=== PATIENT | female | born 1990 | race American Indian/Alaskan Native ===

== ENCOUNTER 2016-12-15 19:47 | Inpatient (IN) | payer OTHER ==
[2016-12-15] MEDS ORDERED: NACL 0.9% 1000 ML 1,000 ML IV ONE ×2 (20:13→22:31)
--- NOTE | 2016-12-15 20:16 | Emergency Department Report ---
HPI - General Chief Complaint: Altered Mental Status Time Seen by Provider: 12/15/16 20:07 - HPI HPI: Room 2 The patient is a 26-year-old female presenting with a chief complaint of altered mental status. Family states the patient's last known well time was at approximately 14:00. The patient went to the park with some friends admits to consuming alcohol. The friends brought the patient back home at approximately 17:00 the patient apparently altered. The patient does speak but moans occasionally and has nonpurposeful movements. There were no complaints earlier as the patient went to synagogue and took her normal medication. Patient does not respond verbally to questions Location: Mental State Duration: Constant since at least 17:00 Quality: Altered Severity: Moderate Modifying factors: [see above] Context: [see above] Mode of transportation: [not driving] ED Past Medical Hx - Past Medical History Previous Medical History?: Yes Hx Psychiatric Treatment: Yes (PTSD, anxiety) - Surgical History Past Surgical History?: No - Family History Family history: no significant - Social History Smoking Status: Unknown if ever smoked Substance Use Type: Alcohol - Medications Home Medications: Home Medications Medication Instructions Recorded Confirmed Last Taken Type Sertraline [Zoloft] 50 mg PO QDAY 12/15/16 12/15/16 Unknown History lamoTRIgine [LaMICtal] 25 mg PO DAILY 12/15/16 12/15/16 Unknown History ED Review of Systems ROS: Stated complaint: ANXIETY W/DAVID Other details as noted in HPI Comment: Unobtainable due to pts medical conditions Physical Exam - Physical Exam Vital Signs: Vital Signs 12/15/16 20:04 Temperature 97.8 F Pulse Rate 132 H Respiratory 18 Rate Blood Pressure 128/110 O2 Sat by Pulse 95 Oximetry Physical Exam: GENERAL: The patient is well-developed well-nourished female appearing disheveled on stretcher requiring multiple staff members to hold her in place in order to establish an IV. [] HEENT: Normocephalic. Atraumatic. Extraocular motions are intact. NECK: Supple. Trachea midline CHEST/LUNGS: There is no respiratory distress noted. HEART/CARDIOVASCULAR: Regular. There is tachycardia. ABDOMEN: There is no abdominal distention. SKIN: There is no rash. There is no edema. There is no diaphoresis. NEURO: The patient is awake and does not respond verbally to questions. The patient is not cooperative and appears slightly agitated. Moves all extremities well MUSCULOSKELETAL: There is no evidence of acute injury. ED Course Vital Signs 12/15/16 20:04 Temperature 97.8 F Pulse Rate 132 H Respiratory 18 Rate Blood Pressure 128/110 O2 Sat by Pulse 95 Oximetry - Reevaluation(s) Reevaluation #1: 12/15/16 21:55 Patient resting comfortably. Discussed with mother studies that have resulted at this time. I explained that even though the patient's alcohol level was extremely high does not exclude potential [employer] insult or other etiologies of altered mental status. I explained my recommendation that the patient receive a CT of the brain. The patient's mother refuses although she verbalized her understanding that an elevated alcohol level does not exclude other tentatively serious causes of patient's presentation ED Medical Decision Making - Lab Data Result diagrams: 12/15/16 20:49 12/15/16 20:49 Laboratory Tests 12/15/16 12/15/16 12/15/16 20:49 20:49 20:49 WBC 7.1 RBC 4.29 Hgb 13.0 Hct 39.4 MCV 92 MCH 30 MCHC 33 RDW 13.7 Plt Count 340 Lymph % (Auto) 45.2 H [place] % (Auto) 6.7 Eos % (Auto) 0.8 Baso % (Auto) 0.2 Lymph # 3.2 [place] # 0.5 Eos # 0.1 Baso # 0.0 Seg Neutrophils % 47.1 Seg Neutrophils # 3.4 PT 13.2 INR 0.95 APTT 31.6 Sodium 150 H Potassium 3.5 L Chloride 109.1 H Carbon Dioxide 26 Anion Gap 18 BUN 7 Creatinine 0.9 Estimated GFR > 60 BUN/Creatinine Ratio 7.77 Glucose 98 Calcium 8.3 L Total Bilirubin < 0.20 AST 18 ALT 19 Alkaline Phosphatase 54 Ammonia Total Creatine Kinase 105 CK-MB (CK-2) 1.3 CK-MB (CK-2) Rel Index 1.2 Troponin T Total Protein 6.8 Albumin 4.1 Albumin/Globulin Ratio 1.5 TSH Free T4 HCG, Qual Plasma/Serum Alcohol 12/15/16 12/15/16 12/15/16 20:49 20:49 20:49 WBC RBC Hgb Hct MCV MCH MCHC RDW Plt Count Lymph % (Auto) [place] % (Auto) Eos % (Auto) Baso % (Auto) Lymph # [place] # Eos # Baso # Seg Neutrophils % Seg Neutrophils # PT INR APTT Sodium Potassium Chloride Carbon Dioxide Anion Gap BUN Creatinine Estimated GFR BUN/Creatinine Ratio Glucose Calcium Total Bilirubin AST ALT Alkaline Phosphatase Ammonia Total Creatine Kinase CK-MB (CK-2) CK-MB (CK-2) Rel Index Troponin T < 0.010 Total Protein Albumin Albumin/Globulin Ratio TSH 0.827 Free T4 1.32 HCG, Qual Negative Plasma/Serum Alcohol 12/15/16 12/15/16 20:49 20:49 WBC RBC Hgb Hct MCV MCH MCHC RDW Plt Count Lymph % (Auto) [place] % (Auto) Eos % (Auto) Baso % (Auto) Lymph # [place] # Eos # Baso # Seg Neutrophils % Seg Neutrophils # PT INR APTT Sodium Potassium Chloride Carbon Dioxide Anion Gap BUN Creatinine Estimated GFR BUN/Creatinine Ratio Glucose Calcium Total Bilirubin AST ALT Alkaline Phosphatase Ammonia 26.0 Total Creatine Kinase CK-MB (CK-2) CK-MB (CK-2) Rel Index Troponin T Total Protein Albumin Albumin/Globulin Ratio TSH Free T4 HCG, Qual Plasma/Serum Alcohol 0.47 H Laboratory Tests 12/15/16 12/15/16 12/15/16 20:49 20:49 20:49 WBC 7.1 RBC 4.29 Hgb 13.0 Hct 39.4 MCV 92 MCH 30 MCHC 33 RDW 13.7 Plt Count 340 Lymph % (Auto) 45.2 H [place] % (Auto) 6.7 Eos % (Auto) 0.8 Baso % (Auto) 0.2 Lymph # 3.2 [place] # 0.5 Eos # 0.1 Baso # 0.0 Seg Neutrophils % 47.1 Seg Neutrophils # 3.4 PT 13.2 INR 0.95 APTT 31.6 Sodium 150 H Potassium 3.5 L Chloride 109.1 H Carbon Dioxide 26 Anion Gap 18 BUN 7 Creatinine 0.9 Estimated GFR > 60 BUN/Creatinine Ratio 7.77 Glucose 98 Calcium 8.3 L Total Bilirubin < 0.20 AST 18 ALT 19 Alkaline Phosphatase 54 Ammonia Total Creatine Kinase 105 CK-MB (CK-2) 1.3 CK-MB (CK-2) Rel Index 1.2 Troponin T Total Protein 6.8 Albumin 4.1 Albumin/Globulin Ratio 1.5 TSH Free T4 HCG, Qual Urine Color Urine Turbidity Urine pH Ur Specific [place] Urine Protein Urine Glucose (UA) Urine Ketones Urine Blood Urine Nitrite Urine Bilirubin Urine Urobilinogen Ur Leukocyte Esterase Urine WBC (Auto) Urine RBC (Auto) U Epithel Cells (Auto) Urine Opiates Screen Urine Methadone Screen Ur Barbiturates Screen Ur Phencyclidine Scrn Ur Amphetamines Screen U Benzodiazepines Scrn Urine Cocaine Screen U Marijuana (THC) Screen Drugs of Abuse Note Plasma/Serum Alcohol 12/15/16 12/15/16 12/15/16 20:49 20:49 20:49 WBC RBC Hgb Hct MCV MCH MCHC RDW Plt Count Lymph % (Auto) [place] % (Auto) Eos % (Auto) Baso % (Auto) Lymph # [place] # Eos # Baso # Seg Neutrophils % Seg Neutrophils # PT INR APTT Sodium Potassium Chloride Carbon Dioxide Anion Gap BUN Creatinine Estimated GFR BUN/Creatinine Ratio Glucose Calcium Total Bilirubin AST ALT Alkaline Phosphatase Ammonia Total Creatine Kinase CK-MB (CK-2) CK-MB (CK-2) Rel Index Troponin T < 0.010 Total Protein Albumin Albumin/Globulin Ratio TSH 0.827 Free T4 1.32 HCG, Qual Negative Urine Color Urine Turbidity Urine pH Ur Specific [place] Urine Protein Urine Glucose (UA) Urine Ketones Urine Blood Urine Nitrite Urine Bilirubin Urine Urobilinogen Ur Leukocyte Esterase Urine WBC (Auto) Urine RBC (Auto) U Epithel Cells (Auto) Urine Opiates Screen Urine Methadone Screen Ur Barbiturates Screen Ur Phencyclidine Scrn Ur Amphetamines Screen U Benzodiazepines Scrn Urine Cocaine Screen U Marijuana (THC) Screen Drugs of Abuse Note Plasma/Serum Alcohol 12/15/16 12/15/16 12/15/16 20:49 20:49 22:40 WBC RBC Hgb Hct MCV MCH MCHC RDW Plt Count Lymph % (Auto) [place] % (Auto) Eos % (Auto) Baso % (Auto) Lymph # [place] # Eos # Baso # Seg Neutrophils % Seg Neutrophils # PT INR APTT Sodium Potassium Chloride Carbon Dioxide Anion Gap BUN Creatinine Estimated GFR BUN/Creatinine Ratio Glucose Calcium Total Bilirubin AST ALT Alkaline Phosphatase Ammonia 26.0 Total Creatine Kinase CK-MB (CK-2) CK-MB (CK-2) Rel Index Troponin T Total Protein Albumin Albumin/Globulin Ratio TSH Free T4 HCG, Qual Urine Color Straw Urine Turbidity Clear Urine pH 6.0 Ur Specific [place] 1.003 Urine Protein 30 mg/dl Urine Glucose (UA) Neg Urine Ketones Neg Urine Blood Sm Urine Nitrite Neg Urine Bilirubin Neg Urine Urobilinogen < 2.0 Ur Leukocyte Esterase Neg Urine WBC (Auto) < 1.0 Urine RBC (Auto) 1.0 U Epithel Cells (Auto) < 1.0 Urine Opiates Screen Urine Methadone Screen Ur Barbiturates Screen Ur Phencyclidine Scrn Ur Amphetamines Screen U Benzodiazepines Scrn Urine Cocaine Screen U Marijuana (THC) Screen Drugs of Abuse Note Plasma/Serum Alcohol 0.47 H 12/15/16 22:40 WBC RBC Hgb Hct MCV MCH MCHC RDW Plt Count Lymph % (Auto) [place] % (Auto) Eos % (Auto) Baso % (Auto) Lymph # [place] # Eos # Baso # Seg Neutrophils % Seg Neutrophils # PT INR APTT Sodium Potassium Chloride Carbon Dioxide Anion Gap BUN Creatinine Estimated GFR BUN/Creatinine Ratio Glucose Calcium Total Bilirubin AST ALT Alkaline Phosphatase Ammonia Total Creatine Kinase CK-MB (CK-2) CK-MB (CK-2) Rel Index Troponin T Total Protein Albumin Albumin/Globulin Ratio TSH Free T4 HCG, Qual Urine Color Urine Turbidity Urine pH Ur Specific [place] Urine Protein Urine Glucose (UA) Urine Ketones Urine Blood Urine Nitrite Urine Bilirubin Urine Urobilinogen Ur Leukocyte Esterase Urine WBC (Auto) Urine RBC (Auto) U Epithel Cells (Auto) Urine Opiates Screen Presumptive negative Urine Methadone Screen Presumptive negative Ur Barbiturates Screen Presumptive negative Ur Phencyclidine Scrn Presumptive negative Ur Amphetamines Screen Presumptive negative U Benzodiazepines Scrn Presumptive negative Urine Cocaine Screen Presumptive negative U Marijuana (THC) Screen Presumptive negative Drugs of Abuse Note Disclamer Plasma/Serum Alcohol - EKG Data -: EKG Interpreted by Me EKG shows normal: sinus rhythm Rate: tachycardia (102 bpm) - EKG Data When compared to previous EKG there are: previous EKG unavailable Interpretation: nonspecific ST-T wave nancy (T-wave inversion in lead 3) - Differential Diagnosis alcohol call intoxication, substance abuse, electrolyte imbalance, ICH Critical care attestation.: If time is entered above; I have spent that time in minutes in the direct care of this critically ill patient, excluding procedure time. ED Disposition Clinical Impression: Altered mental status, Alcohol causing toxic effect, Alcohol intoxication, Hypernatremia, Dehydration Disposition: 09 OP ADMIT IP TO THIS HOSP Is pt being admited?: Yes Does the pt Need Aspirin: No Condition: Serious Referrals: PRIMARY CARE, [Primary Care Provider] - 3-5 Days Time of Disposition: 22:44 (hospitalist paged)
[2016-12-15 21:42] LABS: Basophils % (Auto) 0.2 % (0.0-1.8); Eosinophils % (Auto) 0.8 % (0.0-4.3); Hematocrit 39.4 % (30.3-42.9); Mean Corpuscular HGB Conc 33 % (30-34); Mean Corpuscular Hemoglobin 30 pg (28-32); Mean Corpuscular Volume 92 fl (79-97); Platelet Count 340 K/mm3 (140-440); Red Blood Count 4.29 M/mm3 (3.65-5.03); Red Cell Distribution Width 13.7 % (13.2-15.2); White Blood Count 7.1 K/mm3 (4.5-11.0)
[2016-12-15] MEDS ORDERED: VITAMIN B-1 100 MG, FOLVITE 1 MG, INFUVITE 10 ML, MAGNESIUM SULFATE 2 GM in NACL 0.9% 1... IV ONE (21:48)
[2016-12-15 21:51] LABS: Creatine Kinase MB 1.3 ng/mL (0.0-4.0)
[2016-12-15 21:54] LABS: Alanine Aminotransferase 19 units/L (7-56); Albumin 4.1 g/dL (3.9-5); Albumin/Globulin Ratio 1.5 %; Alkaline Phosphatase 54 units/L (35-129); Anion Gap 18 mmol/L; BUN/Creatinine Ratio 7.77; Bilirubin,Total < 0.20 mg/dL (0.1-1.2); Blood Urea Nitrogen 7 mg/dL (7-17); Calcium 8.3 mg/dL (8.4-10.2); Carbon Dioxide 26 mmol/L (22-30); Chloride 109.1 mmol/L (98-107); Creatine Kinase 105 units/L (30-135); Glucose 98 mg/dL (65-100); Potassium 3.5 mmol/L (3.6-5.0); Sodium 150 mmol/L (137-145); Total Protein 6.8 g/dL (6.3-8.2)
[2016-12-15 22:06] LABS: INR 0.95 (0.87-1.13); Partial Thromboplastin Time 31.6 Sec. (24.2-36.6)
[2016-12-15 22:53] LABS: Bilirubin,Urine NEG (Negative); Blood,Urine SM (Negative); Ketones,Urine NEG (Negative); Leukocyte Esterase,Urine NEG (Negative); Nitrite,Urine NEG (Negative); Urine Drugs of Abuse Note Disclamer; Urobilinogen,Urine < 2.0 mg/dL (<2.0); WBC,Urine < 1.0 /HPF (0.0-6.0)
[2016-12-15] MEDS ORDERED: ZOFRAN IV PRN (23:08)
[2016-12-15] MEDS ORDERED: TYLENOL PR PRN (23:08)
--- NOTE | 2016-12-15 23:13 | History and Physical Report ---
History of Present Illness Date of examination: 12/15/16 History of present illness: 26-year-old woman with history of anxiety comes emergency room because of decreased responsiveness. Mom said that after discharge, she went to the park with a friend, she came back later her speech was slow and her eyes wide and glassy. The patient became less responsive and she was taken to the emergency room for further evaluation. Mom state that her medication was recently changed , patient told her mom that the medication made her feel weird, mom found a bottle of alcohol in her purse. Review of system is unobtainable PAST SURGICAL HISTORY: None SOCIAL HISTORY: Alcohol use, no tobacco or drugs FAMILY HISTORY: Hypertension Medications and Allergies Allergies Allergy/AdvReac Type Severity Reaction Status Date / Time No Known Allergies Allergy Verified 12/15/16 21:52 Home Medications Medication Instructions Recorded Confirmed Last Taken Type Sertraline [Zoloft] 50 mg PO QDAY 12/15/16 12/15/16 Unknown History lamoTRIgine [LaMICtal] 25 mg PO DAILY 12/15/16 12/15/16 Unknown History Active Meds: Active Medications Acetaminophen (Tylenol) 650 mg PO Q4H PRN PRN Reason: Pain MILD(1-3)/Fever >100.5/[place]UE[place] Acetaminophen (Tylenol) 650 mg LA Q4H PRN PRN Reason: Pain MILD(1-3)/Fever >100.5/[place] Folic Acid (Folvite) 1 mg PO QDAY [facility] Thiamine HCl 100 mg/ Folic Acid 1 mg/ Multivitamins/Minerals 10 ml/ Magnesium Sulfate 2 gm/ Sodium Chloride 1,015.2 mls @ 250 mls/hr IV ONCE.ED ONE Stop: 12/16/16 01:51 Last Admin: 12/15/16 22:14 Dose: 250 mls/hr Sodium Chloride (Nacl 0.9% 1000 Ml) 1,000 mls @ 999 mls/hr IV ONCE ONE Stop: 12/15/16 23:31 Last Admin: 12/15/16 22:41 Dose: 999 mls/hr Dextrose/Sodium Chloride (D5/0.45ns) 1,000 mls @ 125 mls/hr IV DIRECT JESSICA Ondansetron HCl (Zofran) 4 mg IV Q4H PRN PRN Reason: N/V unrelieved by Sandie Thiamine HCl (Vitamin B-1) 100 mg PO DAILY JESSICA Exam - Physical Exam Narrative exam: Gen. appearance: Patient lying in bed, no apparent distress HEENT: Normocephalic, atraumatic, pupils equally round and reactive to light, unable to do extraocular movement, and no sclericterus,. No JVD or thyromegaly or nodule,neck supple, no carotid bruit ,mucous membranes moist, no exudate or erythema Heart: S1, S2, regular rate and rhythm Lungs: Clear to auscultation anteriorly bilaterally, breathing comfortable Abdomen: Positive bowel sounds, nontender, nondistended, no organomegaly Extremity: No edema, cyanosis, clubbing Skin: No rash, nodules, warm, dry Neuro: Lethargic but arousable - Constitutional Vitals: Temp Pulse Resp BP Pulse Ox 97.8 F 94 H 19 93/53 95 12/15/16 20:04 12/15/16 21:30 12/15/16 21:30 12/15/16 21:30 12/15/16 21:00 Results - Labs CBC & Chem 7: 12/16/16 07:02 12/16/16 07:02 Labs: Abnormal lab results 12/15/16 12/15/16 12/15/16 Range/Units 20:49 20:49 20:49 Lymph % (Auto) 45.2 H (13.4-35.0) % Sodium 150 H (137-145) mmol/L Potassium 3.5 L (3.6-5.0) mmol/L Chloride 109.1 H (98-107) mmol/L Calcium 8.3 L (8.4-10.2) mg/dL Plasma/Serum Alcohol 0.47 H (0-0.07) gm% Assessment and Plan Altered mental status secondary to alcohol Hypernatremia Alcohol intoxication Alcohol abuse Admit to medicine Start IV fluids, thiamine, folic acid Start CIWA protocol with IV Ativan Monitor sodium level, start DVT prophylaxis
[2016-12-16 07:34] LABS: Basophils % (Auto) 0.2 % (0.0-1.8); Hematocrit 35.9 % (30.3-42.9); Mean Corpuscular HGB Conc 33 % (30-34); Mean Corpuscular Hemoglobin 30 pg (28-32); Mean Corpuscular Volume 91 fl (79-97); Platelet Count 304 K/mm3 (140-440); Red Blood Count 3.96 M/mm3 (3.65-5.03)
[2016-12-16 07:49] LABS: Anion Gap 15 mmol/L; BUN/Creatinine Ratio 8.33; Blood Urea Nitrogen 5 mg/dL (7-17); Calcium 7.3 mg/dL (8.4-10.2); Carbon Dioxide 23 mmol/L (22-30); Chloride 109.6 mmol/L (98-107); Glucose 110 mg/dL (65-100); Potassium 3.8 mmol/L (3.6-5.0); Sodium 144 mmol/L (137-145)
[2016-12-16] MEDS: FOLVITE PO SCH (09:35)
[2016-12-16] MEDS: TYLENOL PO PRN ×2 (09:38→21:02)
[2016-12-16] MEDS: VITAMIN B-1 PO SCH (09:42)
[2016-12-16] MEDS ORDERED: XANAX PO PRN (11:42)
[2016-12-16] MEDS: D5/0.45NS 1,000 ML IV SCH (19:35)
[2016-12-16] MEDS ORDERED: LaMICtal PO SCH (22:25)
[2016-12-16] MEDS ORDERED: ANTIBIOTIC OINT TP PRN (22:27)
--- NOTE | 2016-12-16 23:53 | Progress Note ---
Assessment and Plan - Patient Problems (1) Alcohol intoxication Current Visit: Yes Status: Acute Qualifiers: Complication of substance-induced condition: with unspecified complication Qualified Code(s): F10.929 - Alcohol use, unspecified with intoxication, unspecified Plan to address problem: Acute intoxication with levels at 0.47 initially.Improveed and on [facility] protocol. consult requested (2) Altered mental status Current Visit: Yes Status: Resolved Qualifiers: Altered mental status type: disorientation Coma depth: C Coma timing: C Qualified Code(s): R41.0 - Disorientation, unspecified Plan to address problem: Improved.Sec to acute ETOH intoxication (3) Dehydration Current Visit: Yes Status: Resolved Plan to address problem: Improved (4) Hypernatremia Current Visit: Yes Status: Acute Plan to address problem: Improved with IV fluids (5) Discharge planning issues Current Visit: Yes Status: Acute Plan to address problem: Maybe discharged tomorrow if cleared by MH Subjective Date of service: 12/16/16 Principal diagnosis: ETOH intoxication Interval history: More alert and oriented Objective - Exam Narrative Exam: Lying in bed comfortably - Constitutional Vitals: Vital Signs - 12hr 12/16/16 12/16/16 12/16/16 13:19 17:00 17:04 Temperature 98.1 F 98.0 F Pulse Rate 88 Pulse Rate [ 87 91 H Apical] Pulse Rate [ 87 91 H From Monitor] Pulse Rate [ Right Radial] Respiratory 18 20 Rate Blood Pressure 114/71 124/80 [Left Arm] Blood Pressure [Right Radial Artery] O2 Sat by Pulse Oximetry 12/16/16 12/16/16 21:12 22:09 Temperature 98.7 F Pulse Rate Pulse Rate [ 0 L Apical] Pulse Rate [ 0 L From Monitor] Pulse Rate [ 77 Right Radial] Respiratory 20 Rate Blood Pressure 0/0 [Left Arm] Blood Pressure 104/75 [Right Radial Artery] O2 Sat by Pulse 100 100 Oximetry General appearance: Present: no acute distress, well-nourished - EENT Eyes: PERRL, EOM intact ENT: hearing intact, clear oral mucosa Ears: bilateral: normal - Neck Neck: supple, normal ROM - Respiratory Respiratory effort: normal Respiratory: bilateral: CTA - Breasts Breasts: normal - Cardiovascular Rhythm: regular Heart Sounds: Present: S1 & S2. Absent: gallop, rub Extremities: no ischemia, pulses intact, pulses symmetrical, No edema, normal color, Full ROM - Gastrointestinal General gastrointestinal: Present: soft, non-tender, non-distended, normal bowel sounds - Genitourinary Female genitourinary: normal - Integumentary Integumentary: clear, warm, dry - Musculoskeletal Musculoskeletal: 1, strength equal bilaterally - Neurologic Neurologic: moves all extremities - Psychiatric Psychiatric: memory intact, appropriate mood/affect, intact judgment & insight - Labs CBC & Chem 7: 12/16/16 07:02 12/16/16 07:02 Labs: Abnormal lab results 12/16/16 12/16/16 Range/Units 07:02 07:02 Seg Neutrophils % 75.7 H (40.0-70.0) % Chloride 109.6 H (98-107) mmol/L BUN 5 L (7-17) mg/dL Creatinine 0.6 L (0.7-1.2) mg/dL Glucose 110 H (65-100) mg/dL Calcium 7.3 L (8.4-10.2) mg/dL
[2016-12-17] MEDS: D5/0.45NS 1,000 ML IV SCH (03:45)
[2016-12-17 09:35] VITALS: BP 103/67
[2016-12-17] MEDS: FOLVITE PO SCH (10:21)
--- NOTE | 2016-12-17 11:50 | Discharge Summary ---
Providers - Providers Date of Admission: 12/15/16 23:08 Date of discharge: 12/17/16 Attending physician: AUSTYN HERNANDEZ 12/17/16 00:28 Consult to Mental Health [CONS] Routine Reason For Exam: Etoh dependence Place consult to:: Mental health Notified:: Nils BOWIE Phone number called:: [phone] Was contact made?: Yes If yes, spoke with:: [facility] Time called:: 08:52 Primary care physician: [employer] Hospitalization Condition: Serious Hospital course: 26-year-old woman with history of anxiety came emergency room because of decreased responsiveness. Mom said that, she went to the park with a friend, she came back later with slow speech and her eyes wide and glassy. The patient became less responsive and she was taken to the emergency room for further evaluation. Mom also found a bottle of alcohol in her purse. She was placed on iv fluid and CIWA protocol was followed. Her mental status improved. Counselled for alcolhol cessation. She was discharged home in stable condition. Discharge Diagnosis and management: (1) Alcohol intoxication Acute intoxication with levels at 0.47 initially. Improveed on CIWA protocol. Counselled for cassation (2) Altered toxic encephalopathy Improved. Sec to acute ETOH intoxication (3) Dehydration Improved with IV fluid (4) Hypernatremia Improved with IV fluids likely from dehydration (5) Anxiety disorder - no sign of distress on discharge - out pt f/u with her psychiatrist Disposition: DC-01 TO HOME OR SELFCARE Time spent for discharge: 32 minutes Core Measure Documentation - Palliative Care Palliative Care/ Comfort Measures: Not Applicable - Core Measures Any of the following diagnoses?: none Exam - Constitutional Vitals: Temp Pulse Resp BP Pulse Ox 98.4 F 78 16 103/67 97 12/17/16 09:33 12/17/16 09:33 12/17/16 09:33 12/17/16 09:33 12/17/16 11:16 General appearance: Present: no acute distress, well-nourished - EENT Eyes: Present: PERRL ENT: hearing intact, clear oral mucosa - Neck Neck: Present: supple, normal ROM - Respiratory Respiratory effort: normal Respiratory: bilateral: CTA - Cardiovascular Heart Sounds: Present: S1 & S2. Absent: rub, click - Extremities Extremities: pulses symmetrical, No edema Peripheral Pulses: within normal limits - Abdominal General gastrointestinal: Present: soft, non-tender, non-distended, normal bowel sounds - Integumentary Integumentary: Present: clear, warm, dry - Musculoskeletal Musculoskeletal: gait normal, strength equal bilaterally - Psychiatric Psychiatric: appropriate mood/affect, intact judgment & insight - Neurologic Neurologic: CNII-XII intact, moves all extremities Plan Activity: advance as tolerated Weight Bearing Status: Weight Bear as Tolerated Diet: regular Follow up with: PRIMARY CARE, [Primary Care Provider] - 3-5 Days
[2016-12-17] MEDS: VITAMIN B-1 PO SCH (11:53)
== END 2016-12-17 12:13 | disposition home or self-care (01) | DRG 896 ==
LOC: ED 19:47 → 4A 23:08
PROVIDERS: ADMIT Internal Medicine; ATTEND Internal Medicine
DX: F10.129 Alcohol abuse with intoxication, unspecified (principal); G92 Toxic encephalopathy; E87.0 Hyperosmolality and hypernatremia; F41.9 Anxiety disorder, unspecified; E86.0 Dehydration; Z71.41 Alcohol abuse counseling and surveillance of alcoholic; Z82.49 Family history of ischemic heart disease and other diseases of the circulatory system
CPT/HCPCS: 36415; 80048; 80053; 80307; 80320; 81001; 82140; 82550; 82553; 83735; 84439; 84443; 84484; 84703; 85025; 85610; 85730; 93005; 93010; 96361; 96365; 96366; 96375; 99285; G0480; J3411; J3475; J7030